=== PATIENT | female | born 1995 | race Caucasian/White ===

== ENCOUNTER 2019-06-05 02:55 | Emergency (ER) | payer OTHER, SELFPAY | END 2019-06-05 04:22 | LOC: ERS 02:55 | DX: F10.129 Alcohol abuse with intoxication, unspecified (principal) | CPT/HCPCS: 99283 ==

== ENCOUNTER 2021-03-26 15:44 | Emergency (ER) | payer SELFPAY | END 2021-03-26 17:10 | disposition left against medical advice (07) | LOC: ERS 15:44 | DX: Z53.21 Procedure and treatment not carried out due to patient leaving prior to being seen by health care provider (principal) ==